=== PATIENT | male | born 1955 | race Caucasian/White ===

== ENCOUNTER 2017-10-08 11:32 | Emergency (ER) | payer OTHER, SELFPAY ==
[2017-10-08 11:33] VITALS: BP 108/82; PULSE 151; RESP 16; TEMP 36.6; O2SAT 97; BMI 31.6
[2017-10-08 11:47] VITALS: BP 128/87; PULSE 145; RESP 18; O2SAT 94
--- NOTE | 2017-10-08 11:50 | RAD_ITS ---
STUDY: X-RAY CHEST REASON FOR EXAM: Male, 62 years old. Dyspnea and chest pain. TECHNIQUE: Single AP portable view of the chest. COMPARISON: Comparison is made with prior study dated November 22, 2010. FINDINGS: EKG electrodes are seen. The lungs are clear and expanded. There is no demonstrated pleural abnormality. Normal size heart. Normal mediastinum and yvette. Normal visualized pulmonary arteries. Normal visualized aortic arch and descending thoracic aorta. There are degenerative changes of the visualized thoracic spine. Normal visualized ribs, clavicles, and shoulders. There is no demonstrated abnormality of the visualized soft tissue structures of the upper abdomen. RAD/Chest 1 View (Portable) IMPRESSION: Normal x-ray examination of the chest. Electronically Signed: Leno Steele MD at 12:26 EST Tel [phone], Service support ,
[2017-10-08 11:54] VITALS: BP 128/87; PULSE 106; RESP 18; O2SAT 96
--- NOTE | 2017-10-08 11:54 | EKG12_ITS ---
Test Reason : CP Blood Pressure : / mmHG Vent. Rate : 143 BPM Atrial Rate : 138 BPM P-R Int : 000 ms QRS Dur : 088 ms QT Int : 292 ms P-R-T Axes : 000 000 075 degrees QTc Int : 450 ms Supraventricular tachycardia Nonspecific ST abnormality Abnormal ECG Confirmed by BAILEY MACK, KENNY ([id number]), state editor BENNY LEZAMA ([id number]) on 10/11/2017 2:46:56 PM Referred By: NASEEM Confirmed By:KENNY AVALOS MD
--- NOTE | 2017-10-08 12:00 | EKG12_ITS ---
Test Reason : POSTADENOSINE Blood Pressure : / mmHG Vent. Rate : 100 BPM Atrial Rate : 100 BPM P-R Int : 166 ms QRS Dur : 092 ms QT Int : 342 ms P-R-T Axes : 052 -08 074 degrees QTc Int : 441 ms Normal sinus rhythm Normal ECG Confirmed by BAILEY MACK, KENNY ([id number]), offline editor BENNY LEZAMA ([id number]) on 10/11/2017 2:47:16 PM Referred By: NASEEM Confirmed By:KENNY AVALOS MD
[2017-10-08 12:03] LABS: Hematocrit 49.7 % (40-54); Hemoglobin 17.1 g/dl (13.0-16.5); Mean Corp Hgb Conc 34.4 g/gl (32-36); Mean Corpuscular Hgb 29.6 pg (27.0-32.0); Mean Platelet Vol. 10.8 fl (6.2-12.0); Platelet Count 291 K/mm3 (150-450); RBC Distribution Width CV 12.8 % (11.6-14.6); RBC Distribution Width SD 40.2 fl (35.1-43.9); Red Blood Count 5.78 M/mm3 (4.6-6.2)
[2017-10-08 12:05] LABS: Scan Indicated on CBC? Y/N NO
[2017-10-08 12:32] LABS: Anion Gap 11 (5-15); BUN 24 mg/dL (7-18); BUN/Creat Ratio 13.8 RATIO (10-20); Calcium,Total 9.2 mg/dL (8.5-10.1); Chloride 101 mmol/L (98-107); Creatinine, Serum 1.74 mg/dL (0.70-1.30); EST Glomerular Filtration Rate 43 mL/min (>60); Est Glom Filt Rate - Afr Amer 52 mL/min (>60); Estimated Creatinine Clearance 40.23 ml/min; Glucose 481 mg/dL (74-106); Potassium 4.6 mmol/L (3.5-5.1); Sodium Level 135 mmol/L (136-145); Thyroid Stim Hormone (TSH) 2.97 uIU/mL (0.358-3.74)
[2017-10-08 12:33] VITALS: BP 152/121; PULSE 94; RESP 16; O2SAT 98
[2017-10-08 13:29] VITALS: BP 137/91; PULSE 90; RESP 16; O2SAT 96
--- NOTE | 2017-10-08 14:32 | ED.DCSUM_ITS ---
- ER Visit Summary Date of Service: 10/08/17 Chief Complaint: Chest discomfort, rapid heart rate, nausea and shortness of breath History of Present Illness: The patient is a 62 M who presents because of chest discomfort associated with shortness of breath, nausea and rapid heart rate. Symptoms started at 0700. He has history of type 2 diabetes, hypertension and hypercholesterolemia. He has no known coronary disease. He is a smoker. He denies history of PE, DVT or any risk factors. He denies any leg pain, swelling discoloration. He gives no symptoms of claudication. He denies fever, chills night sweats. Denies weight gain or weight loss. He denies any visual, ocular or auditory symptoms. He denies vomiting, diarrhea or melena. He denies any urologic symptoms. He denies myalgias arthralgias or back pain. He denies rash or any skin lesions. He denies headache, weakness paresthesia, anesthesia or motor weakness. He does complain of increased urination and increased thirst. He denies bruising easily or any bleeding disorder. Hives, angioedema or allergic type symptoms. Physical Examination: Initial blood pressure is 128/87 temperature 97.9 heart rate 145. Respiratory was 18 and pulse ox 94%. He is a heavyset gentleman with a BMI of 31.6. Head is atraumatic normocephalic. Pupils are equal round reactive. Extraocular muscles are intact. TMs are pearly white with landmarks noted. Nares patent with no drainage. Posterior pharynx without erythema or exudate. Uvula is midline. There is no dysphonia or dysphasia. Trachea is midline. There is no stridor with auscultation of the neck. Heart is rapid and regular without murmur, gallop or rub. Lungs are clear to auscultation with good movement bilaterally. Abdomen is soft nontender with no palpable subtle mass. There is no asymmetry, swelling, discoloration, leg vein distention, palpable cords or tenderness along the distribution of the deep venous system. Patient is alert and oriented ?3. Motor is 5 over 5. Sensory is intact. DTRs are symmetric with no clonus or Babinski sign. Cranial 2 through 12 are intact. Cerebellar testing is normal. Test Results: EKG #1 reveals a narrow complex tachycardia rate of 143. White count and differential are normal with a hemoglobin 17.1. Electrolyte panel is remarkable glucose of 481 with a normal CO2 and anion gap. Creatinine is elevated 1.74. Troponin with 5-6 hours of continuous pain is normal, less than 0.02. TSH 2.97. Repeat EKG reveals a sinus rhythm rate of 100 and is normal. Emergency Department Course and Treatment: EKG was obtained to rule out cardiac ischemia. [facility] blood work including troponin and TSH to evaluate for thyroid disease. Patient was treated with 6 mg of adenosine. He converted to a sinus rhythm. Repeat EKG was obtained and documented. 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 Head. Plan is metoprolol 25 mg and follow-up with Dr. Head. Patient was stressed the importance of compliance with his medication and diet. He was stressed the importance to quit smoking. Disposition: Discharged home in stable and improved condition Impression: 1. Narrow complex tachycardia, PSVT 2. Hyperglycemia and diabetic who is noncompliant 3. History of hypertension 4. History of hypercholesterolemia 5. History of tobacco use This note was generated with [employer] dictation software. It may contain incorrect words, spelling, and punctuation that were not noted in review of the chart prior to signing ED Disposition - Plan for ED Patient: Disposition: Home or Assisted Living Chief Complaint: Chest Pain Instructions: ED Tachycardia Pat PSVT, ED Hyperglycemia Diabetic, ED Insufficiency Renal Prescriptions: Metoprolol Succinate 25 mg PO DAILY #30 [id number].er.[id number] Referrals: David Arvizu DO [Primary Care Provider] - Luis Head MD [STAFF PHYSICIAN] - 3-5 Days
[2017-10-08] MEDS: Metoprolol Tartrate 25 MG Tablet PO (15:13)
[2017-10-08 15:14] VITALS: BP 138/87; PULSE 80; PULSE 81; RESP 13; RESP 16; O2SAT 95; O2SAT 97
== END 2017-10-08 15:22 | disposition home or self-care (01) ==
PROVIDERS: Emergency Provider Emergency Medicine; Family Provider Preventive Medicine Occupational Medicine; PCP Preventive Medicine Occupational Medicine
DX: I47.1 Supraventricular tachycardia (principal); E11.65 Type 2 diabetes mellitus with hyperglycemia; I10 Essential (primary) hypertension; E78.00 Pure hypercholesterolemia, unspecified; Z91.14 Patient's other noncompliance with medication regimen; F17.200 Nicotine dependence, unspecified, uncomplicated; E66.9 Obesity, unspecified; Z68.31 Body mass index [BMI] 31.0-31.9, adult; Z79.84 Long term (current) use of oral hypoglycemic drugs; Z79.899 Other long term (current) drug therapy
CPT/HCPCS: 71045; 80048; 84443; 84484; 85027; 93005; 99285; J0153

== ENCOUNTER → 2017-12-23 12:35 | Outpatient (CLI) | payer OTHER, SELFPAY ==
--- NOTE | 2017-12-23 12:36 | ECHOD_ITS ---
Reason For Study: arrhythmia Procedure This was a 2D Doppler, Color Flow transthoracic echocardiogram. Exam performed in department. Left Ventricle Normal LV size. Left ventricular systolic function is normal. The estimated ejection fraction is 55 %. Transmitral doppler flow suggestive of impaired relaxation of left ventricle. No regional wall motion abnormalities noted. Right Ventricle Normal RV size. Normal systolic function. Atria Normal left atrium. Normal right atrium. Mitral Valve Normal mitral valve. Tricuspid Valve Normal tricuspid valve. Trivial tricuspid valve insufficiency. Aortic Valve The aortic valve is not well visualized. Pulmonic Valve Normal pulmonic valve. Great Vessels Normal aortic root. The pulmonary artery is normal size. Normal inferior vena cava. Pericardium/Pleural No pericardial effusion. MMode/2D Measurements & Calculations LVIDd: 4.7 cm IVSd: 1.0 cm Ao root diam: 2.8 cm LVIDs: 3.1 cm LVPWd: 1.0 cm LA dimension: 3.6 cm RVDd: 3.3 cm FS: 33.1 % LAV(MOD-bp): 55.5 ml LA A4 area: 18.1 cm2 RA A4 area: 16.0 cm2 LAV(MOD-bp) Indexed: 28.2 ml/m2 LAV(MOD-sp2): 54.3 ml LAV(MOD-sp4): 55.8 ml Doppler Measurements & Calculations MV E max amando: 70.0 cm/sec Lat Peak E' Amando: 8.8 cm/sec Med Peak E' Amando: 7.4 cm/sec MV A max amando: 77.0 cm/sec E/E' lat: 7.9 E/E' med: 9.5 MV E/A: 0.91 Ao V2 max: 129.0 cm/sec LV V1 max: 97.2 cm/sec PA V2 max: 87.5 cm/sec Ao max P.7 mmHg LV V1 max P.8 mmHg TR max amando: 179.5 cm/sec TR max P.9 mmHg Interpretation Summary Normal LV size. Left ventricular systolic function is normal. The estimated ejection fraction is 55 %. Transmitral doppler flow suggestive of impaired relaxation of left ventricle Ordering Physician: Luis Head Referring Physician: David Arvizu Performed By: Sandra Bennett, EROS, RVT
== END ==
PROVIDERS: Family Provider Preventive Medicine Occupational Medicine; PCP Preventive Medicine Occupational Medicine; Visit Provider Internal Medicine Cardiovascular Disease
DX: I47.1 Supraventricular tachycardia (principal)
CPT/HCPCS: 93306